=== PATIENT | male | born 2000 | race Caucasian/White ===

== ENCOUNTER 2022-12-16 11:20 | Emergency (ER) | payer OTHER, SELFPAY ==
[2022-12-16 11:35] VITALS: BP 132/75; PULSE 80; RESP 16; TEMP 37.3; O2SAT 100
--- NOTE | 2022-12-16 11:36 | ED.URI ---
HPI - URI/Sore Throat General Chief Complaint: Upper Respiratory Infection Stated Complaint: Sore Throat,Bilateral Ear Irritation Time Seen by Provider: 12/16/22 11:36 Source: patient Mode of arrival: ambulatory Limitations: no limitations History of Present Illness HPI Narrative: 22-year-old male presents with complaint sore throat, nasal congestion, bilateral ear pain, fatigue for the past 5 days. Reports low-grade fever. Denies nausea vomiting diarrhea. Reports sore throat getting progressively worse. All systems reviewed and negative except as noted above. Related Data Allergies Allergy/AdvReac Type Severity Reaction Status Date / Time Penicillins Allergy Hives Verified 12/16/22 11:36 Review of Systems Review of Systems: CONSTITUTIONAL: . Reports fatigue, fever, chills, or sweats. EYES: Denies visual changes, redness, or discharge. ENT: Denies rhinorrhea . Reports congestion, sore throat, or otalgia. CARDIOVASCULAR: Denies chest pain, palpitations, or edema. RESPIRATORY: Denies cough or dyspnea. GASTROINTESTINAL: Denies abdominal pain, nausea, vomiting, or diarrhea. GENITOURINARY: Denies dysuria or hematuria. SKIN: Denies rash or itching. MUSCULOSKELETAL: Denies back pain, joint pain, or myalgia. NEUROLOGIC: Denies headache, numbness, or weakness. PSYCHIATRIC: Denies anxiety or depression. All other systems reviewed are negative, except as documented in HPI. PMFSH Comments At time of signature, agree with nursing past medical, surgical, social and family history. There is no relevant family history pertinent to the presenting complaint. Exam Narrative: GENERAL: This is a well-nourished, well-developed patient, in no apparent distress. HEAD: normocephalic, atraumatic. EYES: PERRL. Sclera clear/white. Vision is grossly intact. EARS: External ears normal, auditory canals clear and without drainage, TMs normal without perforation. Hearing grossly intact. NOSE: External nose normal with no obvious nasal discharge, nares without redness, no rhinorrhea. THROAT: Mucous membranes moist, mild erythema and swelling without exudates. NECK: Neck supple, non-tender without lymphadenopathy, masses or thyromegaly. CARDIOVASCULAR: Regular rate and rhythm without murmurs, gallops, or rubs. RESPIRATORY: Clear to auscultation. Breath sounds equal bilaterally. No wheezes, rales, or rhonchi. SKIN: warm, Dry, intact with no suspicious lesions or rash, good texture and turgor. NEURO: awake, alert, and oriented to person, place and time. There were no obvious focal neurologic abnormalities. EXTREMITIES: No joint tenderness, effusion, or edema noted. Course Course Level of Care: Express Care Visit Vital Signs Vital signs: Vital Signs Temperature 37.3 C 12/16/22 11:35 Pulse Rate 80 12/16/22 11:35 Respiratory Rate 16 12/16/22 11:35 Blood Pressure 132/75 12/16/22 11:35 Pulse Oximetry 100 12/16/22 11:35 Oxygen Delivery Room Air 12/16/22 11:35 Temperature 37.3 C 12/16/22 11:35 Pulse Rate 80 12/16/22 11:35 Respiratory Rate 16 12/16/22 11:35 Blood Pressure 132/75 12/16/22 11:35 Pulse Oximetry 100 12/16/22 11:35 Oxygen Delivery Room Air 12/16/22 11:35 Reviewed MDM - URI/Sore Throat MDM Narrative Medical decision making narrative: Patient is aware of diagnosis, understands and agrees to treatment plan. Anticipatory guidance given. Patient agrees to follow-up as directed and is aware of reasons to seek care at the emergency department. Portions of this record may have been created with voice recognition software Differential Diagnosis Differential diagnosis: Likely pharyngitis Lab Data Labs: Strep Screen Positive Group A Strep *(Reference Range: Negative)* Discharge Plan Discharge Clinical Impression: Strep throat Patient Disposition: Home, Self-Care Condition: Stable Instructions: Antib
== END 2022-12-16 11:48 | disposition home or self-care (01) ==
PROVIDERS: Emergency Provider Nurse Practitioner Family
DX: J02.0 Streptococcal pharyngitis (principal)
CPT/HCPCS: 87880; 99213; G0463

== ENCOUNTER 2022-12-23 10:35 | Emergency (ER) | payer OTHER, SELFPAY ==
[2022-12-23 10:53] VITALS: BP 126/77; PULSE 79; RESP 16; TEMP 36.8; O2SAT 100
[2022-12-23 10:55] VITALS: BP 126/77; PULSE 79; RESP 16; TEMP 36.8; O2SAT 100
--- NOTE | 2022-12-23 11:01 | ED.URI ---
HPI - URI/Sore Throat General Chief Complaint: Upper Respiratory Infection Stated Complaint: sorethroat Time Seen by Provider: 12/23/22 11:01 Source: patient Mode of arrival: ambulatory Limitations: no limitations History of Present Illness HPI Narrative: 22-year-old male presents with mother with complaint of sore throat for the past 3 weeks. Was diagnosed with strep throat, took antibiotics but continued to have sore throat. Patient also reports fatigue. 3 days ago he states the lymph nodes to his armpits were tender and swollen but this has resolved. Saw his primary care physician yesterday and was given lab orders for mono screen, [place] antibody and CBC. Has not completed labs yet. Patient's mother brought him here today for a rapid mono test. Patient is well-appearing and talkative. States today throat is swollen and painful, more swollen than it has been in the last 3 weeks. No difficulty swallowing. All systems reviewed and negative except as noted above. Related Data Allergies Allergy/AdvReac Type Severity Reaction Status Date / Time Penicillins Allergy Hives Verified 12/23/22 10:55 Review of Systems Review of Systems: CONSTITUTIONAL: Denies fever, chills, or sweats. Reports fatigue. EYES: Denies visual changes, redness, or discharge. ENT: Denies rhinorrhea, congestion . Reports pain and swelling to throat. CARDIOVASCULAR: Denies chest pain, palpitations, or edema. RESPIRATORY: Denies cough or dyspnea. GASTROINTESTINAL: Denies abdominal pain, nausea, vomiting, or diarrhea. GENITOURINARY: Denies dysuria or hematuria. SKIN: Denies rash or itching. MUSCULOSKELETAL: Denies back pain, joint pain, or myalgia. NEUROLOGIC: Denies headache, numbness, or weakness. PSYCHIATRIC: Denies anxiety or depression. All other systems reviewed are negative, except as documented in HPI. PMFSH Comments At time of signature, agree with nursing past medical, surgical, social and family history. There is no relevant family history pertinent to the presenting complaint. Exam Narrative: GENERAL: This is a well-nourished, well-developed patient, in no apparent distress. HEAD: normocephalic, atraumatic. EYES: PERRL. Sclera clear/white. Vision is grossly intact. EARS: External ears normal, auditory canals clear and without drainage, TMs normal without perforation. Hearing grossly intact. NOSE: External nose normal with no obvious nasal discharge, nares without redness, no rhinorrhea. THROAT: Mucous membranes moist, Posterior pharynx erythematous and swollen, tonsils 1+ bilaterally. Uvula midline. NECK: Neck supple, non-tender without lymphadenopathy, masses or thyromegaly. CARDIOVASCULAR: Regular rate and rhythm without murmurs, gallops, or rubs. RESPIRATORY: Clear to auscultation. Breath sounds equal bilaterally. No wheezes, rales, or rhonchi. GASTROINTESTINAL: Abdomen soft, non-tender, nondistended. Bowel sounds are active. No hepato-splenomegaly, or palpable masses. No guarding. SKIN: warm, Dry, intact with no suspicious lesions or rash, good texture and turgor. NEURO: awake, alert, and oriented to person, place and time. There were no obvious focal neurologic abnormalities. EXTREMITIES: No joint tenderness, effusion, or edema noted. Course Course Level of Care: Express Care Visit Vital Signs Vital signs: Vital Signs Temperature 36.8 C 12/23/22 10:53 Pulse Rate 79 12/23/22 10:53 Respiratory Rate 16 12/23/22 10:53 Blood Pressure 126/77 12/23/22 10:53 Pulse Oximetry 100 12/23/22 10:53 Oxygen Delivery Room Air 12/23/22 10:53 Temperature 36.8 C 12/23/22 10:55 Pulse Rate 79 12/23/22 10:55 Respiratory Rate 16 12/23/22 10:55 Blood Pressure 126/77 12/23/22 10:55 Pulse Oximetry 100 12/23/22 10:55 Oxygen Delivery Room Air 12/23/22 10:55 Reviewed MDM - URI/Sore Throat MDM Narrative Medical decision making narrative: Patient is aware of diagnosis, understands
== END 2022-12-23 11:32 | disposition home or self-care (01) ==
PROVIDERS: Emergency Provider Nurse Practitioner Family
DX: B27.90 Infectious mononucleosis, unspecified without complication (principal)
CPT/HCPCS: 36416; 86308; 99213; G0463

== ENCOUNTER 2023-01-07 12:25 | Emergency (ER) | payer OTHER, SELFPAY ==
[2023-01-07 12:50] VITALS: BP 134/78; PULSE 87; RESP 18; TEMP 36.8; O2SAT 97
--- NOTE | 2023-01-07 13:12 | ED.GENADULT ---
HPI - General Adult General Chief complaint: Upper Respiratory Infection Stated complaint: sorethroat Time Seen by Provider: 01/07/23 13:12 Source: patient Mode of arrival: ambulatory Limitations: no limitations History of Present Illness HPI narrative: 22-year-old male patient presents to [facility] with complaints of sore throat. Patient was seen here about 3 weeks ago was diagnosed with strep and was given azithromycin. Patient states his symptoms started getting better after completing antibiotics then came back and was diagnosed with mono about 2 weeks ago. Patient states that the sore throat has come back within the last week and has gotten worse. Denies fevers, body aches or chills. Denies abdominal pain, nausea, vomiting or diarrhea. Related Data Allergies Allergy/AdvReac Type Severity Reaction Status Date / Time Penicillins Allergy Hives Verified 01/07/23 12:53 Review of Systems Review of Systems: CONSTITUTIONAL: Denies fever, chills, or sweats. EYES: Denies visual changes, redness, or discharge. ENT: Denies rhinorrhea, congestion, Positive sore throat, or otalgia. CARDIOVASCULAR: Denies chest pain, palpitations, or edema. RESPIRATORY: Denies cough or dyspnea. GASTROINTESTINAL: Denies abdominal pain, nausea, vomiting, or diarrhea. GENITOURINARY: Denies dysuria or hematuria. SKIN: Denies rash or itching. MUSCULOSKELETAL: Denies back pain, joint pain, or myalgia. NEUROLOGIC: Denies headache, numbness, or weakness. PSYCHIATRIC: Denies anxiety or depression. [facility] Past Medical History Medical History (Updated 01/07/23 @ 13:27 by DEIDRA Ortiz) Mononucleosis Strep throat Comments At the time of my signature I agree with nursing past medical history, surgical, social, and family history. There is no relevant family history pertinent to the presenting complaint. Exam Narrative: GENERAL: Well-appearing, well-nourished, and in no acute distress. HEAD: Normocephalic, atraumatic. EYES: PERRLA and EOMI. ENT: Nares clear, no rhinorrhea or epistaxis. Mucous membranes moist. posterior pharynx with erythema and tonsillar enlargement. No exudates noted. NECK: Supple. No lymphadenopathy CHEST: Clear to auscultation. No respiratory distress. HEART: Regular rate and rhythm. No murmur heard. Normal peripheral pulses. ABDOMEN: Soft, nontender, nondistended, normal active bowel sounds. EXTREMITIES: Normal range of motion. No edema. SKIN: Warm, dry, no rash. NEURO: No focal deficits. Alert and oriented x3. Course Course Level of Care: Express Care Visit Vital Signs Vital signs: Vital Signs Temperature 36.8 C 01/07/23 12:50 Pulse Rate 87 01/07/23 12:50 Respiratory Rate 18 01/07/23 12:50 Blood Pressure 134/78 01/07/23 12:50 Pulse Oximetry 97 01/07/23 12:50 Oxygen Delivery Room Air 01/07/23 12:50 Temperature 36.8 C 01/07/23 12:50 Pulse Rate 87 01/07/23 12:50 Respiratory Rate 18 01/07/23 12:50 Blood Pressure 134/78 01/07/23 12:50 Pulse Oximetry 97 01/07/23 12:50 Oxygen Delivery Room Air 01/07/23 12:50 vital signs reviewed. Medical Decision Making MDM Narrative Medical decision making narrative: Discussed with patient that he has tested positive today for strep. Discussed with him that he is at higher risk for reinfection and given the fact that he also does have mono. We will go ahead and try different antibiotic today for the strep infection and if he continues to have symptoms he will need to follow up with his primary doctor. Patient verbalized understanding denies any other questions or concerns at this time. Differential Diagnosis Differential Diagnosis: Differential diagnosis: Viral pharyngitis, pharyngitis, group A strep, infectious mononucleosis, gonococcal pharyngitis, exudative pharyngitis, oral candidiasis. Chronic allergies, postnasal drip, GERD, abscess formation, but glottitis, retropharyngeal abscess formation, or airway obs
== END 2023-01-07 13:32 | disposition home or self-care (01) ==
PROVIDERS: Emergency Provider Nurse Practitioner Family
DX: J02.0 Streptococcal pharyngitis (principal)
CPT/HCPCS: 87880; 99213; G0463